=== PATIENT | female | born 1970 | race Two or more races ===

== ENCOUNTER → 2016-05-12 | Outpatient (CLI) | payer OTHER | LOC: FIMAGING 19:26 | PROVIDERS: ATTEND Psychiatry & Neurology Neurology | DX: R20.2 Paresthesia of skin (principal); R51 Headache; F80.9 Developmental disorder of speech and language, unspecified ==

== ENCOUNTER → 2016-09-07 | Outpatient (CLI) | payer OTHER | LOC: EDSTATUS 09:43 → GIMAGING 18:28 | PROVIDERS: ATTEND Nurse Practitioner | DX: M25.571 Pain in right ankle and joints of right foot (principal) | CPT/HCPCS: 73610-PO ==